=== PATIENT | female | born 1945 | race Asian ===

== ENCOUNTER 2019-08-20 20:37 | Emergency (ER) | payer OTHER ==
[~2019-08-20] VITALS: Ht 160 cm; Wt 134.3 kg
[2019-08-20 21:33] LABS: POTASSIUM 3.8 mmol/L (3.6-5.2)
[2019-08-20 21:35] LABS: PLATELET COUNT 186 K/uL (152-353)
[2019-08-20 22:05] VITALS: BP 165/82; TEMP 98.2
[2019-08-20] MEDS ORDERED: BUMETANIDE1 MG PO (23:31)
[2019-08-20] MEDS ORDERED: TYLENOL325 MG PO (23:31)
[2019-08-20] MEDS ORDERED: HYDRALAZINE50 MG PO (23:32)
[2019-08-20] MEDS ORDERED: CARV25TA PO (23:32)
[2019-08-20] MEDS ORDERED: IPRATROPIUM/ INH (23:35)
[2019-08-20] MEDS ORDERED: MELATONIN3 M3 PO (23:36)
[2019-08-20] MEDS ORDERED: OMEP40CA PO (23:38)
[2019-08-20] MEDS ORDERED: HYDR-3182 PO (23:38)
[2019-08-20] MEDS ORDERED: PRAVACHOL80 MG PO (23:39)
[2019-08-20] MEDS ORDERED: POTASSIUM CHLO20 ME1 PO (23:39)
[2019-08-20] MEDS ORDERED: DOCUZEN 8.6-501 TAB PO (23:40)
[2019-08-20] MEDS ORDERED: SPIRONOLACT25 MG PO (23:41)
[2019-08-20] MEDS ORDERED: ALPR0.2566 PO (23:41)
[2019-08-20] MEDS ORDERED: FSBS (23:43)
[2019-08-20] MEDS ORDERED: OXYGEN NAS (23:45)
== END 2019-08-20 22:05 | disposition other institution (70) ==
LOC: ED 20:37
PROVIDERS: Emergency Medicine
DX: F28 Other psychotic disorder not due to a substance or known physiological condition (principal); R44.2 Other hallucinations; Z04.6 Encounter for general psychiatric examination, requested by authority
CPT/HCPCS: 36415; 80053; 85027; 93005; 99285